=== PATIENT | female | born 1970 | race Hispanic/Latino ===

== ENCOUNTER 2017-05-29 22:22 | Emergency (ER) | payer OTHER | END 2017-05-29 23:12 | disposition home or self-care (01) | LOC: EDH 22:22 | DX: S82.61XA Displaced fracture of lateral malleolus of right fibula, initial encounter for closed fracture (principal); Z72.0 Tobacco use; W18.39XA Other fall on same level, initial encounter; Y93.89 Activity, other specified; Y92.89 Other specified places as the place of occurrence of the external cause; Y99.8 Other external cause status | CPT/HCPCS: 73610 ==

== ENCOUNTER 2017-08-29 18:09 | Emergency (ER) | payer OTHER | END 2017-08-29 18:56 | disposition home or self-care (01) | LOC: EDH 18:09 | DX: G89.29 Other chronic pain (principal); M25.571 Pain in right ankle and joints of right foot | CPT/HCPCS: 99281 ==